=== PATIENT | male | born 1930 | race Caucasian/White ===

== ENCOUNTER 2017-01-25 12:20 | Observation (INO) | payer OTHER, BC ==
[~2017-01-25] VITALS: Ht 185.4 cm; Wt 102.1 kg
[~2017-01-25 12:20] MED LIST: ADVIL PM1 TABLET PO; ALTACE5 MG PO; LO-DOSE ASPIRIN81 M1 PO; NASACORT10.8 ML BOTH NARES; NORVASC5 MG PO; TYLENOL ARTHRI650 MG PO; VIAGRA100 MG PO; VITAMIN B12-FO1 EACH PO; VITAMIN D31000 UNIT PO
[2017-01-25] MEDS ORDERED: CALCIUM 500 MG1 EACH PO (12:37)
[2017-01-25] MEDS ORDERED: ALEVE220 M2 PO (12:38)
[2017-01-25 13:03] LABS: BASOPHIL COUNT 0.1 K/uL (0-0.1); EOSINOPHIL (%) 2.3 % (0-5); EOSINOPHIL COUNT 0.2 K/uL (0-0.3); HEMATOCRIT 39.2 % (38.0-50.0); IMMATURE GRANULOCYTE (%) 0.6 % (0.0-0.7); INSTRUMENT ABS NEUTROPHIL CT 5.3 K/uL; LYMPHOCYTE COUNT 1.1 K/uL (1.0-2.8); MCH 33.1 PG (29.0-34.0); MCHC 34.2 G/DL (30.0-36.0); MCV 96.8 FL (86-99); MEAN PLAT.VOLUME 9.4 uM^3 (9.0-12.4); MONOCYTE (%) 9.2 % (3-12); MONOCYTE COUNT 0.7 K/uL (0-0.8); NEUTROPHIL (%) 72.6 % (45-76); NEUTROPHIL COUNT 5.3 K/uL (1.8-6.4); PLATELET COUNT 138 K/uL (156-360); RBC DIS.WIDTH-SD 42.8 % (39-53); RED BLOOD COUNT 4.05 M/uL (4.00-5.50); WHITE BLOOD COUNT 7.3 K/uL (4.1-10.2)
[2017-01-25 13:13] LABS: CHLORIDE 108 mEq/L (99-109); POTASSIUM 4.4 mEq/L (3.7-5.4); SODIUM 139 mEq/L (136-147)
[2017-01-25 13:15] LABS: GLUCOSE 119 mg/dL (70-99)
[2017-01-25 13:17] LABS: ANION GAP 8 MEQ/L (2-14); TOTAL BILIRUBIN 0.8 mg/dL (0.0-1.0)
[2017-01-25 13:19] LABS: ALKALINE PHOSPHATASE 59 IU/L (3-129); GFR ESTIMATE (CALCULATED) > 59 mL/min/
[2017-01-25 13:20] LABS: UREA NITROGEN (BUN) 23 mg/dL (9-23)
[2017-01-25 13:24] LABS: TROP-I INTERPRETATION NEGATIVE; TROPONIN-I < 0.01 ng/mL (0.0-0.30)
[2017-01-25] MEDS ORDERED: VIAGRA100 MG PO (14:15)
[2017-01-25] MEDS ORDERED: TYLENOL ARTHRI650 MG PO (14:16)
[2017-01-25] MEDS ORDERED: ADVIL PM1 TABLET PO (14:16)
[2017-01-25] MEDS ORDERED: UNISOM50 MG PO (14:16)
[2017-01-25 15:14] LABS: SERUM ETHYL ALCOHOL < 10 mg/dL
[2017-01-25 15:38] VITALS: BP 165/90
[2017-01-25 17:29] LABS: BASE EXCESS -2.9 mEq/L (-3 to +3); CARBOXY HGB 2.2 % (0-5); METHEMOGLOBIN 1.7 % (0-1.5); PCO2 38 mm Hg (35-45); PO2 66 mm Hg (80-100); pH 7.37 (7.35-7.45)
[2017-01-25 17:30] LABS: COMMENTS - BLOOD GASES A+C+; DEVICE NC; O2 FLOW 1.5 L/MIN; SITE LR
[2017-01-25 17:53] LABS: TROP-I INTERPRETATION NEGATIVE; TROPONIN-I 0.02 ng/mL (0.0-0.30)
[2017-01-25 18:45] VITALS: BP 170/90
[2017-01-25 20:03] LABS: BASE EXCESS -12.7 mEq/L (-3 to +3); BICARBONATE 10.8 mEq/L (22-26); CARBOXY HGB 1.9 % (0-5); COMMENTS - BLOOD GASES A+C+; DEVICE NRBM; METHEMOGLOBIN 1.5 % (0-1.5); O2 FLOW 20 L/MIN; PCO2 20 mm Hg (35-45); PO2 101 mm Hg (80-100); SITE LR; pH 7.34 (7.35-7.45)
[2017-01-25 20:04] LABS: FI02 100 %; TOTAL RESP RATE 28 resp/min
== END 2017-01-25 21:01 ==
LOC: EME 12:20 → EDOF 14:16 → ENRESERV 14:18 → 5WEST 15:01 → ENRESERV 20:01 → 4WEST 21:01
PROVIDERS: Emergency Medicine; Hospitalist; Internal Medicine
PROC: 0BH17EZ Insertion of Endotracheal Airway into Trachea, Via Natural or Artificial Opening (ICD-10-PCS; principal; 2017-01-25)
PROC: 5A12012 Performance of Cardiac Output, Single, Manual (ICD-10-PCS; 2017-01-25)
DX: R55 Syncope and collapse (principal); I49.01 Ventricular fibrillation; R00.1 Bradycardia, unspecified; I46.9 Cardiac arrest, cause unspecified; I10 Essential (primary) hypertension; D69.6 Thrombocytopenia, unspecified; Z85.46 Personal history of malignant neoplasm of prostate; Z85.828 Personal history of other malignant neoplasm of skin; Z90.49 Acquired absence of other specified parts of digestive tract; Z92.3 Personal history of irradiation; Z79.82 Long term (current) use of aspirin; Z88.0 Allergy status to penicillin; Z88.2 Allergy status to sulfonamides
CPT/HCPCS: 31500; 36600; 70450; 71010; 80048; 80053; 80076; 80306 90; 82803; 83735; 84484; 85025; 85610; 85730; 86850; 86900; 86901; 92950; 93005; 94640; 94799; 99202; 99281; 99285; G0378; G0480; J0461; J1644; J2250; J3010; J7030